=== PATIENT | male | born 1960 | race Caucasian/White ===

== ENCOUNTER 2024-08-25 16:46 | Inpatient (IN) | payer OTHER ==
[~2024-08-25] VITALS: Ht 190.5 cm; Wt 95.3 kg
[2024-08-25 18:44] LABS: BASOPHILS # (AUTO) 0.1 K/UL (0.0-0.2); BASOPHILS % (AUTO) 0.7 % (0.0-2.0); EOSINOPHILS # (AUTO) 0.2 K/uL (0.0-0.7); EOSINOPHILS % (AUTO) 2.6 % (0.0-7.0); HEMATOCRIT 42.8 % (36.7-47.1); HEMOGLOBIN 14.4 g/dL (12.5-16.3); LYMPHOCYTES # (AUTO) 1.6 K/uL (0.8-4.8); LYMPHOCYTES % (AUTO) 20.8 % (20.5-51.5); MEAN CORPUSCULAR HGB CONC 34 g/dL (32.5-36.3); MEAN CORPUSCULAR VOLUME 94.7 fL (73.0-96.2); MONOCYTES # (AUTO) 0.7 K/uL (0.1-1.30); MONOCYTES % (AUTO) 8.7 % (0.0-11.0); NEUTROPHILS # (AUTO) 5.1 K/uL (1.8-8.9); NEUTROPHILS % (AUTO) 67.2 % (38.5-71.5); PLATELET COUNT (AUTO) 193 K/uL (152-348); RED BLOOD CELL COUNT(AUTO) 4.52 MIL/uL (4.06-5.63); RED CELL DISTRIBUTION WIDTH 13.1 % (12.1-16.2); WHITE BLOOD COUNT (AUTO) 7.6 K/uL (3.6-10.2)
[2024-08-25 18:53] LABS: DIFFERENTIAL COMMENT 1
[2024-08-25 18:56] LABS: CALCIUM 9.1 mg/dL (8.5-10.1); CARBON DIOXIDE 29 mmol/L (21-32); CHLORIDE 101 mmol/L (98-107); CREATININE 0.9 mg/dL (0.6-1.3); GLUCOSE 113 mg/dL (74-106); POTASSIUM 4.2 mmol/L (3.5-5.1); SODIUM SERUM 141 mmol/L (136-145); UREA NITROGEN, BLOOD 21 mg/dL (7-18)
[2024-08-25 19:04] LABS: ETHANOL < 3 MG/DL (0-10)
[2024-08-25 19:08] LABS: ALANINE AMINOTRANSFERASE 23 U/L (16-63); ALBUMIN 3.8 g/dL (3.4-5.0); ALKALINE PHOSPHATASE 87 U/L (50-136); ASPARTATE AMINOTRANSFERASE 11 U/L (15-37); BILIRUBIN,DIRECT 0.2 mg/dL (0.0-0.2); BILIRUBIN,TOTAL 0.5 mg/dL (0.2-1.0)
[2024-08-25 19:09] LABS: ACETAMINOPHEN < 2.0 ug/mL (10-30)
[2024-08-26] MEDS ORDERED: ACETAMINOPHEN 500 MG TABLET ONE (02:17)
[2024-08-26] MEDS ORDERED: MELATONIN 3 MG TABLET ONE (02:17)
[2024-08-26] MEDS: ACETAMINOPHEN 500 MG TABLET PO ONE (02:18)
[2024-08-26] MEDS: MELATONIN 3 MG TABLET PO SCH (02:18)
[2024-08-26] MEDS ORDERED: MAGNESIUM HYDROXIDE 30 ML LIQUID UDC PO PRN (08:15)
[2024-08-26] MEDS ORDERED: MAG HYDROX/AL HYDROX/SIMETH 30 ML LIQUID UDC PO PRN (08:15)
[2024-08-26] MEDS ORDERED: TEMAZEPAM 7.5 MG CAPSULE PO PRN (08:15)
[2024-08-26 09:47] LABS: *BILIRUBIN,URIN NEGATIVE (NEGATIVE); *BLOOD, URINE NEGATIVE (NEGATIVE); *CLARITY,URINE CLEAR (CLEAR); *COLOR,URINE YELLOW (YELLOW); *KETONES,URINE NEGATIVE (NEGATIVE); *PROTEIN,URINE NEGATIVE (NEGATIVE); *UROBILINOGEN,URINE 0.2 E.U./dl (NORMAL); LEUKOCYTE ESTERASE ,URINE NEGATIVE (NEGATIVE); NITRITE, URINE NEGATIVE (NEGATIVE); PH,URINE 7.5 (5.0-8.0); UGLUCOSE NEGATIVE (NEGATIVE)
[2024-08-26] MEDS ORDERED: LISINOPRIL 5 MG TABLET PO SCH (10:15)
[2024-08-26] MEDS ORDERED: SPIRONOLACTONE 25 MG TABLET PO SCH (10:15)
[2024-08-26] MEDS ORDERED: SPIR25TA6 PO (10:22)
[2024-08-26] MEDS ORDERED: LISI-782 PO (10:22)
[2024-08-26 11:42] LABS: *AMPHETAMINE, URINE NEGATIVE (NEGATIVE); *BARBITURATE, URINE NEGATIVE (NEGATIVE); *BENZODIAZEPINE, URINE NEGATIVE (NEGATIVE); *CANNABINOID, URINE NEGATIVE (NEGATIVE); *COCCAINE, URINE NEGATIVE (NEGATIVE); *OPIATE, URINE NEGATIVE (NEGATIVE); *PHENCYCLIDINE SCREEN,URINE NEGATIVE (NEGATIVE); FENTANYL, URINE NEGATIVE (NEGATIVE)
[2024-08-26] MEDS: ACETAMINOPHEN 325 MG TABLET PO PRN (12:54)
[2024-08-26 20:03] VITALS: BP 139/89; TEMP 98.1; O2SAT 98
[2024-08-27 08:00] VITALS: BP 118/89; TEMP 98.2; O2SAT 98
[2024-08-27] MEDS: SERTRALINE HCL 50 MG TABLET PO SCH (08:37)
[2024-08-27 09:31] LABS: BASOPHILS % (AUTO) 0.5 % (0.0-2.0); EOSINOPHILS # (AUTO) 0.1 K/uL (0.0-0.7); HEMATOCRIT 43.5 % (36.7-47.1); LYMPHOCYTES # (AUTO) 1.1 K/uL (0.8-4.8); MEAN CORPUSCULAR HEMOGLOBIN 32.2 uug (23.8-33.4); MEAN CORPUSCULAR HGB CONC 34 g/dL (32.5-36.3); MEAN CORPUSCULAR VOLUME 93.7 fL (73.0-96.2); MONOCYTES # (AUTO) 0.4 K/uL (0.1-1.30); MONOCYTES % (AUTO) 6.3 % (0.0-11.0); NEUTROPHILS # (AUTO) 4.6 K/uL (1.8-8.9); NEUTROPHILS % (AUTO) 74.2 % (38.5-71.5); PLATELET COUNT (AUTO) 185 K/uL (152-348); RED BLOOD CELL COUNT(AUTO) 4.64 MIL/uL (4.06-5.63); RED CELL DISTRIBUTION WIDTH 12.7 % (12.1-16.2); WHITE BLOOD COUNT (AUTO) 6.2 K/uL (3.6-10.2)
[2024-08-27 09:38] LABS: DIFFERENTIAL COMMENT 1
[2024-08-27 10:35] LABS: ALBUMIN 3.5 g/dL (3.4-5.0); BILIRUBIN,TOTAL 0.8 mg/dL (0.2-1.0); CALCIUM 8.7 mg/dL (8.5-10.1); CREATININE 0.9 mg/dL (0.6-1.3); POTASSIUM 3.9 mmol/L (3.5-5.1); TOTAL PROTEIN, SERUM 6.5 g/dL (6.4-8.2)
[2024-08-27 11:02] LABS: MAGNESIUM 1.8 mg/dL (1.8-2.4); PHOSPHOROUS 3.7 mg/dL (2.5-4.9)
[2024-08-27 16:00] VITALS: BP 128/79; TEMP 98.2; O2SAT 98
[2024-08-27 18:53] LABS: THYROID STIMULATING HORMONE 2.14 mIU/mL (0.358-3.740)
[2024-08-27 21:32] VITALS: BP 146/79; TEMP 98
[2024-08-28 08:05] VITALS: BP 126/79; TEMP 98; O2SAT 98
[2024-08-28] MEDS: LISINOPRIL 5 MG TABLET PO SCH (08:39)
[2024-08-28] MEDS: SPIRONOLACTONE 25 MG TABLET PO SCH (08:39)
[2024-08-28] MEDS: NEOMY/BACITRAC/POLYMI OINT 28.35 GM TUBE TOP SCH (13:44)
[2024-08-28] MEDS: MINERAL OIL/PETROLATUM,WHITE 57 GM TUBE TOP SCH (13:45)
[2024-08-28 16:08] VITALS: BP 129/79; TEMP 98.4; O2SAT 100
[2024-08-28 19:56] VITALS: BP 144/80; TEMP 98.2; O2SAT 96
[2024-08-28] MEDS: CLONAZEPAM 0.5 MG TABLET PO PRN (20:28)
[2024-08-29 08:10] VITALS: BP 124/54; TEMP 98; O2SAT 98
[2024-08-29 19:59] VITALS: BP 142/83; TEMP 98.1; O2SAT 96
[2024-08-30 07:46] VITALS: BP 123/70; TEMP 98.8; O2SAT 97
[2024-08-30 16:00] VITALS: BP 122/76; TEMP 97.2; O2SAT 97
[2024-08-30 20:16] VITALS: BP 135/86; TEMP 97.3; O2SAT 97
[2024-08-31 07:58] VITALS: BP 114/66; TEMP 97.6; O2SAT 95
[2024-08-31 15:00] VITALS: BP 150/84; TEMP 98.4; O2SAT 98
== END 2024-08-31 17:30 | disposition home or self-care (01) | DRG 756 ==
LOC: ER 16:53 → GPS 08-26 04:36
PROVIDERS: ADMIT Psychiatry & Neurology Psychiatry; ATTEND Internal Medicine
DX: F41.1 Generalized anxiety disorder (principal); F33.9 Major depressive disorder, recurrent, unspecified; I10 Essential (primary) hypertension; Z59.01 Sheltered homelessness; R60.9 Edema, unspecified; R79.89 Other specified abnormal findings of blood chemistry; Z79.899 Other long term (current) drug therapy; R41.9 Unspecified symptoms and signs involving cognitive functions and awareness
CPT/HCPCS: 36415; 71045; 83735; 84100; 84443; 85025; A9150; G0480